=== PATIENT | female | born 1960 | race Caucasian/White ===

== ENCOUNTER → 2017-07-21 | Outpatient (CLI) | payer OTHER | LOC: FIMAGING 08:06 | PROVIDERS: ATTEND Family Medicine | DX: Z12.31 Encounter for screening mammogram for malignant neoplasm of breast (principal) ==

== ENCOUNTER 2018-10-13 19:20 | Emergency (ER) | payer OTHER ==
--- NOTE | 2018-10-13 19:41 | EDPHY ---
H & P Stated Complaint: upper abd pain started this am-nausea and diarrhea for one month Source: Patient Exam Limitations: No limitations - Personal History Current Tetanus/Diphtheria Vaccine: Yes Current Tetanus Diphtheria and Acellular Pertussis (TDAP): Yes - Medical/Surgical History Hx Asthma: No Hx Chronic Respiratory Disease: No Hx Diabetes: No Hx Cardiac Disease: No Hx Renal Disease: No Hx Cirrhosis: No Hx Alcoholism: No Hx HIV/AIDS: No Hx Splenectomy or Spleen Trauma: No Other PMH: eye surgery - Social History Smoking Status: Never smoked Time Seen by Provider: 10/13/18 19:40 HPI/ROS: CHIEF COMPLAINT: Right upper quadrant pain, slightly elevated lipase HISTORY OF PRESENT ILLNESS: The patient presents the emergency department with complaints of sharp right upper quadrant pain which is been occurring for the past several days. The patient reports several weeks of ongoing nausea and loose stool. She has also been having some pain in her right back. She was seen at [facility] today and diagnosed with a urinary tract infection and started on antibiotics. The patient was referred to the emergency department after laboratory testing did demonstrate an elevated lipase. I reviewed the results of her outpatient lab studies which demonstrate a slightly elevated creatinine of 1.8, elevated lipase and otherwise normal liver function test. REVIEW OF SYSTEMS: A comprehensive 10 point review of systems is otherwise negative aside from elements mentioned in the history of present illness. (Rg Orantes) - Physical Exam Exam: General Appearance: Alert, no distress Eyes: Pupils equal and round no pallor or injection ENT, Mouth: Mucous membranes moist Respiratory: There are no retractions, lungs are clear to auscultation Cardiovascular: Regular rate and rhythm Gastrointestinal: Tenderness to palpation noted in the right upper quadrant, normal bowel sounds, no peritoneal signs. No CVA tenderness present Neurological: A&O, normal motor function, normal sensory exam, normal cranial nerves Skin: Warm and dry, no rashes Musculoskeletal: Neck is supple nontender Extremities: symmetrical, full range of motion (Rg Orantes) Constitutional: Initial Vital Signs Temperature (C) 36.7 C 10/13/18 19:24 Heart Rate 83 10/13/18 19:24 Respiratory Rate 16 10/13/18 19:24 Blood Pressure 151/94 H 10/13/18 19:24 O2 Sat (%) 98 10/13/18 19:24 O2 Delivery Mode Room Air Allergies/Adverse Reactions: clindamycin Allergy (Verified 10/13/18 19:27) corn Allergy (Verified 10/13/18 19:27) formaldehyde Allergy (Verified 10/13/18 19:29) Sulfa (Sulfonamide Antibiotics) Allergy (Verified 10/13/18 19:27) Tetracyclines Allergy (Verified 10/13/18 19:28) Home Medications: Medication Instructions Recorded Abx For Uti 10/13/18 Probiotic 10/13/18 Medical Decision Making - Diagnostics Imaging Results: Imaging Impressions Abdomen Ultrasound 10/13/18 19:48 Impression: 1. Moderate hepatomegaly and diffuse steatosis. 2. Echogenic enlarged pancreas uniform thickening, consistent with pancreatitis. If there is progression of the patient's symptoms, contrast- enhanced CT imaging is suggested. 3. There is no evidence of cholelithiasis or bile duct dilatation. Findings were discussed with Rg Orantes MD at 20:35, on 10/13/2018. Abdomen CT 10/13/18 21:00 Impression: 1. There appears to be some mild "fullness" of the pancreatic head, neck, and uncinate process, with no focal mass, peripancreatic inflammatory stranding, peripancreatic fluid collection, or unusual enhancement; nonetheless, in this patient with an elevated serum lipase level, this may suggest a mild uncomplicated pancreatitis. 2. There is no evidence of bile duct dilatation. 3. Hepatomegaly, with moderate diffuse steatosis. Findings were discussed with Kody oMdi MD at 21:39, on 10/13/2018. ED Course/Re-evaluation: Right upper quadrant ultrasound was performed which demonstrates a contracted gallbladder without evidence of cholecystitis. Given the patient's ongoing tenderness I do feel additional imaging is indicated. The patient is noted to have mild renal insufficiency. Plan will be to establish an IV, give 2 L of fluid recheck the creatinine. CT scan of the abdomen pelvis with ordered for further characterization of her pain and slightly elevated lipase. The patient will be turned over to Dr. Modi at 9pm. (Rg Orantes) Other Provider: Patient turned over to me by Dr. Orantes pending CT. CT shows no sign of mass or abdominal emergency. On re-eval, patient is comfortable and would like to go home. She is comfortable with plan for outpatient workup and we discussed strict return precautions. (Kody Modi) - Data Points Laboratory Results: 10/13/18 20:54 POC Hgb 15.0 gm/dL gm/dL (12.6-16.3) POC Hct 44 % % (38-47) POC Sodium 141 mEq/L mEq/L (135-145) POC Potassium 4.3 mEq/L mEq/L (3.3-5.0) POC Chloride 104 mEq/L mEq/L (97-110) POC Total CO2 28 mEq/L mEq/L (22-31) POC BUN 33 mg/dL H mg/dL (7-23) POC Creatinine 1.3 mg/dL H mg/dL (0.6-1.0) POC Glucose 109 mg/dL H mg/dL (70-100) Medications Given: Discontinued Medications Sodium Chloride (Ns) 1,000 mls @ 0 mls/hr IV EDNOW ONE; Wide Open PRN Reason: Protocol Stop: 10/13/18 20:38 Last Admin: 10/13/18 20:49 Dose: 1,000 mls Sodium Chloride (Ns) 1,000 mls @ 0 mls/hr IV EDNOW ONE; Wide Open PRN Reason: Protocol Stop: 10/13/18 20:38 Last Admin: 10/13/18 20:49 Dose: 1,000 mls Point of Care Test Results: Chemistry 10/13/18 20:54 POC Sodium 141 mEq/L mEq/L (135-145) POC Potassium 4.3 mEq/L mEq/L (3.3-5.0) POC Chloride 104 mEq/L mEq/L (97-110) POC Total CO2 28 mEq/L mEq/L (22-31) POC BUN 33 mg/dL H mg/dL (7-23) POC Creatinine 1.3 mg/dL H mg/dL (0.6-1.0) POC Glucose 109 mg/dL H mg/dL (70-100) ISTAT H&H 10/13/18 20:54 POC Hgb 15.0 gm/dL gm/dL (12.6-16.3) POC Hct 44 % % (38-47) Departure - Departure Disposition: Home, Routine, Self-Care Clinical Impression: Pancreatitis Condition: Good Instructions: Pancreatitis (ED) Additional Instructions: Follow-up with your primary doctor within 72 hours. Return to the Emergency Department for worsening pain, fever, severe vomiting, change in character or severity of pain or other worsening of condition. Referrals: Eugenio Wong MD [Primary Care Provider] - As per Instructions
[2018-10-13] MEDS ORDERED: NS 1,000 ML IV ONE ×2 (20:37)
[2018-10-13] MEDS ORDERED: IOPAMIDOL (ISOVUE-300) 100 ML BTL ONE (21:07)
[2018-10-13 22:03] VITALS: BP 134/72
== END 2018-10-13 22:02 | disposition home or self-care (01) ==
DX: K85.90 Acute pancreatitis without necrosis or infection, unspecified (principal); R16.0 Hepatomegaly, not elsewhere classified; E86.9 Volume depletion, unspecified
CPT/HCPCS: 82435-PO; 82565-PO; 82947-PO; 84132-PO; 84295-PO; 84520-PO; 85014-ER; Q9967